=== PATIENT | male | born 1995 | race African-American/Black ===

== ENCOUNTER 2018-08-10 09:11 | Day surgery (SDC) | payer OTHER ==
[~2018-08-10] VITALS: Ht 175.3 cm; Wt 63.0 kg
[2018-08-10] MEDS ORDERED: MIDAZOLAM 2 MG/2 ML VIAL ONE (11:14)
[2018-08-10] MEDS ORDERED: fentaNYL 0.05 MG/ML VIAL ONE (11:14)
[2018-08-10] MEDS ORDERED: MIDAZOLAM 2 MG/2 ML VIAL IVP ONE (12:55)
== END 2018-08-10 12:48 | disposition home or self-care (01) ==
LOC: MDS 09:11 → MTU 09:58 → MDS 12:48
PROVIDERS: ATTEND Internal Medicine Gastroenterology
DX: K29.70 Gastritis, unspecified, without bleeding (principal); K20.9 Esophagitis, unspecified; E10.9 Type 1 diabetes mellitus without complications; I10 Essential (primary) hypertension; F32.9 Major depressive disorder, single episode, unspecified; F17.210 Nicotine dependence, cigarettes, uncomplicated; Z85.72 Personal history of non-Hodgkin lymphomas; Z72.89 Other problems related to lifestyle; Z79.899 Other long term (current) drug therapy; Z79.4 Long term (current) use of insulin; Z98.890 Other specified postprocedural states
CPT/HCPCS: 43239; 82948; 88305; 88312; 88313; J2250; J3010

== ENCOUNTER 2018-11-23 06:18 | Day surgery (SDC) | payer OTHER ==
[~2018-11-23] VITALS: Ht 175.3 cm; Wt 65.8 kg
[2018-11-23] MEDS ORDERED: MIDAZOLAM 2 MG/2 ML VIAL ONE (09:02)
[2018-11-23] MEDS ORDERED: fentaNYL 0.05 MG/ML VIAL ONE (09:02)
[2018-11-23] MEDS ORDERED: MIDAZOLAM 2 MG/2 ML VIAL IVP ONE (10:15)
[2018-11-23] MEDS ORDERED: fentaNYL 0.05 MG/ML VIAL IVP ONE (10:15)
== END 2018-11-23 11:30 | disposition home or self-care (01) ==
LOC: MDS 06:18 → MMU 06:20 → MDS 11:30
PROVIDERS: ATTEND Internal Medicine Gastroenterology
DX: K31.84 Gastroparesis (principal); I10 Essential (primary) hypertension; R11.2 Nausea with vomiting, unspecified; E11.9 Type 2 diabetes mellitus without complications; Z98.890 Other specified postprocedural states
CPT/HCPCS: 43246; J0690; J2250; J3010; J7030; J7060; J7120

== ENCOUNTER 2022-04-15 11:03 | Day surgery (SDC) | payer OTHER ==
[~2022-04-15] VITALS: Ht 175.3 cm; Wt 62.1 kg
[2022-04-15] MEDS ORDERED: fentaNYL citrate 0.05 MG/ML VIAL ONE (13:10)
[2022-04-15] MEDS ORDERED: MIDAZOLAM 2 MG/2 ML VIAL ONE ×2 (13:10→13:52)
[2022-04-15] MEDS ORDERED: MIDAZOLAM 2 MG/2 ML VIAL IVP ONE (14:20)
[2022-04-15] MEDS ORDERED: fentaNYL citrate 0.05 MG/ML VIAL IVP ONE (14:20)
== END 2022-04-15 15:20 | disposition home or self-care (01) ==
LOC: MOR 11:03 → MMU 11:03 → MOR 15:20
PROVIDERS: ATTEND Internal Medicine Gastroenterology
DX: R13.10 Dysphagia, unspecified (principal); K22.2 Esophageal obstruction; I10 Essential (primary) hypertension; E11.9 Type 2 diabetes mellitus without complications; K29.70 Gastritis, unspecified, without bleeding; Z79.4 Long term (current) use of insulin; Z79.899 Other long term (current) drug therapy; Z20.822 Contact with and (suspected) exposure to COVID-19
CPT/HCPCS: 43239; 43248; 82948; 87426; C1769; J2250; J3010

== ENCOUNTER 2022-04-29 08:44 | Day surgery (SDC) | payer OTHER ==
[~2022-04-29] VITALS: Ht 175.3 cm; Wt 62.6 kg
[2022-04-29] MEDS ORDERED: MIDAZOLAM 5 MG/5 ML VIAL ONE (12:43)
[2022-04-29] MEDS ORDERED: fentaNYL citrate 0.05 MG/ML VIAL ONE (12:43)
[2022-04-29] MEDS ORDERED: fentaNYL citrate 0.05 MG/ML VIAL IVP ONE (13:50)
[2022-04-29] MEDS ORDERED: MIDAZOLAM 2 MG/2 ML VIAL IVP ONE (13:50)
== END 2022-04-29 14:55 | disposition home or self-care (01) ==
LOC: MDS 08:44 → MMU 08:46 → MDS 14:55
PROVIDERS: ATTEND Internal Medicine Gastroenterology
DX: R13.10 Dysphagia, unspecified (principal); K22.2 Esophageal obstruction; I10 Essential (primary) hypertension; E11.9 Type 2 diabetes mellitus without complications; F32.A Depression, unspecified; K31.84 Gastroparesis; Z79.4 Long term (current) use of insulin; Z79.899 Other long term (current) drug therapy; Z20.822 Contact with and (suspected) exposure to COVID-19
CPT/HCPCS: 43248; 82948; 87426; C1769; J2250; J3010

== ENCOUNTER 2022-05-13 10:37 | Day surgery (SDC) | payer OTHER ==
[~2022-05-13] VITALS: Ht 175.3 cm; Wt 62.6 kg
[2022-05-13 11:06] LABS: BASOPHILS % (AUTO) 1.1 % (0.0-2.0); EOSINOPHILS # (AUTO) 0.2 K/uL (0-0.4); EOSINOPHILS % (AUTO) 5.5 % (0.0-4.0); HEMATOCRIT 31.1 % (36-52); HEMOGLOBIN 10.3 g/dL (12.0-18.0); LYMPHOCYTES # (AUTO) 1.4 K/uL (2.0-11.5); LYMPHOCYTES % (AUTO) 40.2 % (20.5-51.1); MEAN CORPUSCULAR HEMOGLOBIN 29 pg (27-31); MEAN CORPUSCULAR HGB CONC 33 g/dL (33-37); MEAN CORPUSCULAR VOLUME 87.6 fL (80-94); MONOCYTES # (AUTO) 0.3 K/uL (0.8-1.0); MONOCYTES % (AUTO) 8.1 % (1.7-9.3); NEUTROPHILS # (AUTO) 1.6 K/uL (1.8-7.7); NEUTROPHILS % (AUTO) 45.1 % (42.2-75.2); PLATELET COUNT (AUTO) 248 K/uL (140-450); RED BLOOD CELL COUNT(AUTO) 3.56 MIL/uL (4.20-6.10); RED CELL DISTRIBUTION WIDTH 17.9 % (11.6-13.7); WHITE BLOOD COUNT (AUTO) 3.5 K/uL (4.8-10.8)
[2022-05-13 11:26] LABS: ALBUMIN 2.9 g/dL (3.4-5.0); ANION GAP 8.5 (8-16); CARBON DIOXIDE 33.1 mmol/L (21-32); CREATININE 1.3 mg/dL (0.6-1.3); POTASSIUM 3.6 mmol/L (3.5-5.1); TOTAL BILIRUBIN 0.3 mg/dL (0.0-1.0)
[2022-05-13] MEDS ORDERED: PROPOFOL 200 MG/20 ML VIAL IV ONE ×2 (12:00→13:07)
[2022-05-13] MEDS ORDERED: DEXTROSE 50% 50 ML SYR IVP ONE (12:13)
[2022-05-13] MEDS ORDERED: hydrALAZINE 20 MG/ML VIAL IVP PRN (13:13)
[2022-05-13] MEDS ORDERED: NACL 0.9% 1,000 ML IV SCH ×2 (13:15)
[2022-05-13] MEDS ORDERED: ONDANSETRON 4 MG/2 ML VIAL IVP PRN (13:15)
[2022-05-13] MEDS ORDERED: LABETALOL 100 MG/20 ML VIAL ONE (13:16)
[2022-05-13] MEDS: LABETALOL 20 MG/4 ML VIAL IVP PRN ×3 (13:21→13:41)
[2022-05-13] MEDS ORDERED: MORPHINE SULFATE 4 MG/ML SYR IVP PRN (13:50)
== END 2022-05-13 15:03 | disposition home or self-care (01) ==
LOC: MDS 10:37 → MMU 10:38 → MDS 15:03
PROVIDERS: ATTEND Internal Medicine Gastroenterology
DX: K22.2 Esophageal obstruction (principal); K31.84 Gastroparesis; Z79.4 Long term (current) use of insulin; Z20.822 Contact with and (suspected) exposure to COVID-19
CPT/HCPCS: 36415; 43239; 43248; 71045; 80053; 82948; 85025; 87426; 88305; 88312; J2270; J2704; J3490; J7030; Q0092

== ENCOUNTER 2022-06-10 09:05 | Day surgery (SDC) | payer OTHER ==
[~2022-06-10] VITALS: Ht 175.3 cm; Wt 56.2 kg
[2022-06-10 09:41] LABS: BASOPHILS % (AUTO) 0.9 % (0.0-2.0); EOSINOPHILS # (AUTO) 0.1 K/uL (0-0.4); EOSINOPHILS % (AUTO) 3.1 % (0.0-4.0); HEMATOCRIT 32.8 % (36-52); HEMOGLOBIN 11.1 g/dL (12.0-18.0); LYMPHOCYTES # (AUTO) 1.4 K/uL (2.0-11.5); LYMPHOCYTES % (AUTO) 29.2 % (20.5-51.1); MEAN CORPUSCULAR HEMOGLOBIN 29 pg (27-31); MEAN CORPUSCULAR HGB CONC 34 g/dL (33-37); MEAN CORPUSCULAR VOLUME 84.3 fL (80-94); MONOCYTES # (AUTO) 0.4 K/uL (0.8-1.0); MONOCYTES % (AUTO) 8.2 % (1.7-9.3); NEUTROPHILS # (AUTO) 2.8 K/uL (1.8-7.7); NEUTROPHILS % (AUTO) 58.6 % (42.2-75.2); PLATELET COUNT (AUTO) 205 K/uL (140-450); RED BLOOD CELL COUNT(AUTO) 3.89 MIL/uL (4.20-6.10); RED CELL DISTRIBUTION WIDTH 15.7 % (11.6-13.7); WHITE BLOOD COUNT (AUTO) 4.8 K/uL (4.8-10.8)
[2022-06-10 09:44] LABS: ANION GAP 9.7 (8-16); CARBON DIOXIDE 31.6 mmol/L (21-32); CREATININE 1.6 mg/dL (0.6-1.3); POTASSIUM 3.3 mmol/L (3.5-5.1)
[2022-06-10] MEDS ORDERED: DEXTROSE 50% 50 ML SYR IVP ONE (09:45)
[2022-06-10] MEDS ORDERED: KCL 20 MEQ/WATER INJ PREMIX 100 ML IV SCH (10:15)
[2022-06-10] MEDS ORDERED: TRIAMCINOLONE 10 MG/ML 5ML VIAL IA SCH (10:40)
[2022-06-10] MEDS ORDERED: PROPOFOL 200 MG/20 ML VIAL IV ONE (10:54)
[2022-06-10] MEDS ORDERED: BLOOD GLUCOSE MONITORING 1 DEV DEV FS ONE (11:45)
[2022-06-10] MEDS ORDERED: NACL 0.9% 1,000 ML IV SCH (11:45)
[2022-06-10] MEDS ORDERED: hydrALAZINE 20 MG/ML VIAL IVP PRN (11:49)
[2022-06-10] MEDS ORDERED: LABETALOL 100 MG/20 ML VIAL ONE (11:50)
[2022-06-10] MEDS ORDERED: LABETALOL 20 MG/4 ML VIAL IVP PRN (11:50)
[2022-06-10] MEDS ORDERED: PANTOPRAZOLE 40 MG INJ VIAL IVP SCH (11:57)
== END 2022-06-10 14:04 | disposition home or self-care (01) ==
LOC: MDS 09:05 → MMU 09:05 → MDS 14:04
PROVIDERS: ATTEND Internal Medicine Gastroenterology
DX: K22.2 Esophageal obstruction (principal); K21.9 Gastro-esophageal reflux disease without esophagitis; I12.9 Hypertensive chronic kidney disease with stage 1 through stage 4 chronic kidney disease, or unspecified chronic kidney disease; E11.22 Type 2 diabetes mellitus with diabetic chronic kidney disease; N18.9 Chronic kidney disease, unspecified; Z20.822 Contact with and (suspected) exposure to COVID-19; Z79.899 Other long term (current) drug therapy
CPT/HCPCS: 36415; 43236; 43248; 80048; 85025; 87426; C9113; J2704; J3301; J3480; J3490; J7030